=== PATIENT | female | born 1945 | race Caucasian/White ===

== ENCOUNTER 2023-11-04 05:00 | Outpatient (CLI) | payer MEDICARE, SELFPAY ==
[2023-11-04 09:43] LABS: HCT 44.6 % (36.0-46.0); HGB 14.8 g/dL (11.2-15.7); MCH 29.7 pg (27.0-33.0); MCHC 33.2 % (32.0-36.0); MCV 90 fL (80-95); MPV 8.5 fL (8.0-11.0); Platelet Count 333 10^3/uL (130-400); RBC 4.98 10^6/uL (3.93-5.22); RDW 13.1 % (11.7-14.6); RDW-SD 42.5 fL; WBC 8.03 10^3/uL (4.4-10.8)
[2023-11-04 10:24] LABS: Hemoglobin A1C 6.1 % (<5.7)
[2023-11-04 11:22] LABS: Anion Gap 8.4 mmol/L (3-11); BUN 23 mg/dL (7-18); CO2 25.6 mmol/L (21.0-32.0); CREATININE 1.2 mg/dL (0.55-1.02); Calcium 9.8 mg/dL (8.5-10.1); Calculated LDL 91 mg/dL (<100); Chloride 96 mmol/L (98-107); Cholesterol 182 mg/dL (<200); Estimated GFR 45.76 (mL/min/1.73m2); Glucose 125 mg/dL (74-106); HDL Cholesterol 62 mg/dL (40-60); Potassium 5.2 mmol/L (3.5-5.1); Sodium 130 mmol/L (136-145); Triglyceride 145 mg/dL (<150)
[2023-11-04 11:40] LABS: NT-proBNP 129 pg/mL (<300)
== END 2023-11-04 05:01 | disposition home or self-care (01) ==
PROVIDERS: PCP Nurse Practitioner Family; Visit Provider Nurse Practitioner Family
DX: I10 Essential (primary) hypertension (principal); M85.89 Other specified disorders of bone density and structure, multiple sites; E78.5 Hyperlipidemia, unspecified; F32.A Depression, unspecified; R06.02 Shortness of breath; R73.09 Other abnormal glucose
CPT/HCPCS: 36415; 80048; 80061; 85027; 83036; 83880

== ENCOUNTER 2024-04-22 10:19 | Emergency (ER) | payer MEDICARE, SELFPAY ==
[2024-04-22] VITALS (22 sets, daily range): BP systolic 109–141; BP diastolic 58–79; PULSE 67–120; RESP 14–27; TEMP 36.6–36.8; O2SAT 95–100
--- NOTE | 2024-04-22 10:30 | RT.EKG_ITS ---
APPROVED REPORT Exam: Resting ECG Reason for Exam: Weakness, Tachycardia Patient Location: E HR:105 bpm ECG Measurements Heart Rate 105 AXIS ME 142 P 63 QRSd 120 QRS 36 QT 365 T 161 QTc 483 Conclusion Sinus tachycardia, rate 105 LBBB Jenny vega criteria met for acute ischemia
--- NOTE | 2024-04-22 10:45 | DI.RAD_ITS ---
Exam(s) XR PORTABLE CHEST AP EXAM: XR PORTABLE CHEST AP CLINICAL HISTORY: Cough. TECHNIQUE: 2D digital imaging was performed. COMPARISON: No exams were available for comparison FINDINGS: Single AP portable view. Heart size is upper normal. The mediastinum is not widened. Lungs are clear. No infiltrates nor obvious pleural effusions. IMPRESSION: No acute pulmonary findings on this single AP portable view of the chest. DATA REPOSITORY: RADIATION DOSE DELIVERED:
[2024-04-22 11:36] LABS: Abs Immature Grans 0.04 10^3/uL (0.0-0.06); Absolute Basophil Count 0.07 10^3/uL (0.0-0.2); Absolute Eosinophil Count 0.14 10^3/uL (0.0-0.7); Absolute Lymphocyte Count 1.88 10^3/uL (1.2-3.4); Absolute Monocyte Count 0.85 10^3/uL (0.1-0.8); Absolute Neutrophil Count 7.31 10^3/uL (1.2-6.7); Basophils % 0.7 %; Eosinophils % 1.4 %; HCT 46.8 % (36.0-46.0); HGB 15.5 g/dL (11.2-15.7); Immature Grans % 0.4 %; Lymphocytes % 18.3 %; MCH 29.6 pg (27.0-33.0); MCHC 33.1 % (32.0-36.0); MCV 90 fL (80-95); MPV 9.6 fL (8.0-11.0); Monocytes % 8.3 %; Neutrophils % 70.9 %; Platelet Count 237 10^3/uL (130-400); RBC 5.23 10^6/uL (3.93-5.22); RDW 14.2 % (11.7-14.6); RDW-SD 46.2 fL; WBC 10.29 10^3/uL (4.4-10.8)
--- NOTE | 2024-04-22 12:00 | ED.GENADUL_ITS ---
Discharge Plan Disposition Patient Disposition: Home Condition: Stable Discharge Details Clinical Impression: Acute dehydration, Hypertension, Hyperlipidemia, Depression, MCI (mild cognitive impairment), LBBB (left bundle branch block), Schatzki's ring Primary Care Provider: Medina Johnson ED Provider: Flory Shea Home Meds and New Rx's Prescriptions: No Action omeprazole 20 mg capsule,delayed release(DR/EC) 20 mg PO DAILY Qty: 90 3RF Rx Instructions: take 30 minutes before largest meal of the day atorvastatin 20 mg tablet 20 mg PO DAILY Qty: 90 3RF lisinopril 40 mg tablet 40 mg PO DAILY Qty: 90 3RF sertraline 50 mg tablet 75 mg PO DAILY Qty: 135 3RF cholecalciferol (vitamin D3) 25 mcg (1,000 unit) capsule 25 mcg PO DAILY nystatin 100,000 unit/gram powder 1 applic topical BID PRN (Reason: yeast ) Qty: 30 1RF spironolactone 50 mg tablet 25 mg PO DAILY Discharge Instructions Instructions: Dehydration, Adult (DC) Additional Instructions: Your family member was seen in the emergency department today for evaluation of poor oral intake and was found to be dehydrated. Her laboratory studies were otherwise quite reassuring, and she had no sign of infection or damage to her heart. She was able to drink quite a bit of water here in the emergency department and I am reassured that she will be able to maintain her hydration in the outpatient environment with some encouragement. She can drink juice, Gatorade, or anything else that gives her hydration that tastes better to her than water. She should also maintain good nutrition, and follow-up with her primary care provider for reassessment in the next few days. Thank you for allowing us to be part of your family member's care. Discharge Data Discharge Date/Time-TO BE ENTERED AT DEPARTURE: 04/22/24 14:58 HPI General Mode of arrival: ambulatory . Date/Time Provider Initiated Documentation: 04/22/24 10:59 . Limitations to Documentation: no limitations . Information obtained by: patient, family and old records reviewed . HPI Narrative: HPI: This is an 78-year-old female patient with a past medical history significant for Schatzki's ring, left bundle branch block, depression, hyperlipidemia, and hypertension, who is presenting for evaluation of poor p.o. intake and dark urine. History is primarily obtained from the patient's [id number] who is the primary caregiver. She reports that for the last week or so the patient has not been eating and drinking as much is typical, they have noted occasional episodes of coughing and gagging, and they were worried for dehydration due to the patient's dark urine that was noted in her brief yesterday. The patient has otherwise been in her normal health, with no fever, chills, reported pain. She has not been complaining of any nausea and has not had vomiting. The patient has been taking all of her medications as prescribed. She had an incident where this occurred several months to years ago, at which time her primary care provider increased her antidepressants, to good effect. Exam: Gen: Awake and alert, in no apparent distress. HEENT: Non-icteric sclera, pupils equal and reactive Neck: Supple Lungs: No apparent respiratory distress, normal respiratory effort. Lung sounds clear and equal, no wheezes, rhonchi, rales. Patient does not have any episodes of coughing while under my care. CV: Appears well perfused, strong distal pulses, tachycardic rate but regular rhythm Abdomen: Non-distended, soft, nontender with no rigidity, rebound, or guarding MSK: Moves 4 extremities without apparent limitation in ROM, no unilateral calf swelling or tenderness, no peripheral edema Skin: Visualized skin without rashes, cyanosis. Neuro: No obvious focal deficits or facial asymmetry. Speaks in full, clear sentences, slow to answer questions and requires family prompting. Psych: Appropriate for situation. MDM: This is an 78-year-old female patient presenting for evaluation of decreased p.o. intake and dark urine. My differential includes but is not limited to dehydration, metabolic and electrolyte derangements, could certainly considered hypothyroidism and depression, as well as dysphagia due to her known Schatzki's ring. I considered urinary tract infection, nephrolithiasis. No significant abdominal tenderness to increase my concern for severe intra- abdominal pathology such as bowel obstruction, perforation, etc. We will provide the patient with oral fluids, obtain an EKG, and laboratory studies to include CBC, CMP, troponin, BNP, TSH, and urinalysis. I will also obtain a chest x-ray to evaluate for abnormalities such as pneumonia or evidence of aspiration. ED Course: I reviewed the patient's EKG, which shows a sinus tachycardia with a left bundle branch block, reported as baseline for the patient with no evidence of acute ischemia. Chest x-ray without evidence of focal consolidation suggestive of pneumonia, aspiration, or evidence of pulmonary edema. I reviewed the patient's laboratory studies which show no leukocytosis, anemia or thrombocytopenia. Chemistry panel without severe electrolyte abnormalities, she does have an elevation in her BUN to 38 with a creatinine of 0.9, BUN to creatinine ratio greater than 20-1 suggestive of prerenal azotemia. Bilirubin is very mildly elevated to 106, troponin is negative x 2 checks, no elevation in BNP, TSH within normal limits. Urinalysis without evidence of infection, was contaminated, but no indication for antibiosis at this time. The patient was able to be rehydrated orally and drink quite a bit of water here in the emergency department with encouragement. Family was counseled on increasing p.o. hydration at home. The patient's tachycardia resolved, and I feel confident the patient will be able to maintain her hydration in the outpatient environment, and recommended follow-up with her primary care provider in the next few days to discuss this visit and any symptoms that change, worsen, or persist. At this time, the patient has had a full medical evaluation and is safe for discharge to home. They are hemodynamically stable, ambulatory, and tolerating PO. They are understanding of the follow-up plan and return precautions. They left our facility without incident. Flory Shea MD Related Data Home Medications ?Medication ?Instructions ?Recorded ?Confirmed cholecalciferol (vitamin D3) 25 25 mcg PO DAILY 07/23/23 04/22/24 mcg (1,000 unit) capsule nystatin 100,000 unit/gram topical 1 applic topical BID PRN yeast 08/26/23 04/22/24 powder #30 grams atorvastatin 20 mg tablet 20 mg PO DAILY #90 tabs 10/28/23 04/22/24 lisinopril 40 mg tablet 40 mg PO DAILY #90 tabs 10/28/23 04/22/24 omeprazole 20 mg capsule,delayed 20 mg PO DAILY #90 caps 10/28/23 04/22/24 release sertraline 50 mg tablet 75 mg (1.5 x 50 mg) PO DAILY #135 02/12/24 04/22/24 tabs spironolactone 50 mg tablet 25 mg PO DAILY 04/22/24 04/22/24 Previous Rx's ?Medication ?Instructions ?Recorded nystatin 100,000 unit/gram topical 1 applic topical BID PRN yeast 08/26/23 powder #30 grams atorvastatin 20 mg tablet 20 mg PO DAILY #90 tabs 10/28/23 lisinopril 40 mg tablet 40 mg PO DAILY #90 tabs 10/28/23 omeprazole 20 mg capsule,delayed 20 mg PO DAILY #90 caps 10/28/23 release sertraline 50 mg tablet 75 mg (1.5 x 50 mg) PO DAILY #135 02/12/24 tabs Allergies Allergy/AdvReac Type Severity Reaction Status Date / Time etodolac Allergy Unknown unknown Unverified 04/22/24 10:50 General Stated Complaint: GenMedical MANISH: 2 Course Vital Signs Vital signs: Vital Signs Temperature 36.6 C 04/22/24 10:30 Pulse 120 H 04/22/24 10:30 Respiratory Rate 14 04/22/24 10:30 Blood Pressure 113/58 L 04/22/24 10:30 Pulse Oximetry 96 04/22/24 10:30 Temperature 36.8 C 04/22/24 10:56 Temperature Source Oral 04/22/24 10:30 Pulse 98 H 04/22/24 10:56 Respiratory Rate 17 04/22/24 10:56 Respiratory Effort Normal 04/22/24 10:56 Respiratory Depth Normal 04/22/24 10:56 Respiratory Pattern Normal 04/22/24 10:56 Blood Pressure 109/75 04/22/24 10:56 Blood Pressure Position Supine 04/22/24 10:56 Pulse Oximetry 97 04/22/24 10:56 Oxygen Delivery Method Room Air 04/22/24 10:30 Oxygen Flow Rate 0 04/22/24 10:30 Pain Level 4 04/22/24 10:30 Lab/Test Results Lab/Test Results: Laboratory Tests Range/Units 04/22/24 11:30 WBC (4.4-10.8) 10^3/uL 10.29 RBC (3.93-5.22) 10^6/uL 5.23 H Hgb (11.2-15.7) g/dL 15.5 Hct (36.0-46.0) % 46.8 H MCV (80-95) fL 90 MCH (27.0-33.0) pg 29.6 MCHC (32.0-36.0) % 33.1 RDW (11.7-14.6) % 14.2 Plt Count (130-400) 10^3/uL 237 MPV (8.0-11.0) fL 9.6 Immature Gran % % 0.4 Neutrophils % % 70.9 Lymphocytes % % 18.3 Monocytes % % 8.3 Eosinophils % % 1.4 Basophils % % 0.7 Nucleated RBC % (0.0-0.3) % 0.0 Absolute Neutrophils (1.2-6.7) 10^3/uL 7.31 H Absolute Lymphocytes (1.2-3.4) 10^3/uL 1.88 Absolute Monocytes (0.1-0.8) 10^3/uL 0.85 H Absolute Eosinophils (0.0-0.7) 10^3/uL 0.14 Absolute Basophils (0.0-0.2) 10^3/uL 0.07 Medical Decision Making Quality:SDOH Health Related Social Needs: No Data to Display PFSH All Active Problems (Updated 04/22/24 @ 14:50 by Flory Shea MD) Acute dehydration (Acute) Dementia (Chronic) SCC (squamous cell carcinoma) (Acute ~01/2023) Schatzki's ring (Acute) LBBB (left bundle branch block) (Acute ~2016) MCI (mild cognitive impairment) (Acute ~2021) Anisocoria (Acute) Depression (Chronic ~2018) Esophageal spasm (Acute) PVC (premature ventricular contraction) (Acute ~2019) Actinic keratoses (Acute) Gait disturbance (Acute ~2017) Osteoarthritis of right knee (Acute) Plantar fasciitis (Acute) Osteopenia (Acute) Anxiety (Chronic) Venous insufficiency (Acute) Dyspepsia (Acute) Agoraphobia (Acute Unknown) Chronic rhinitis (Acute Unknown) Vitamin D deficiency (Acute Unknown) Obesity (Chronic ~2014) Hyperlipidemia (Acute) Hypertension (Chronic) Medical History (Updated 04/22/24 @ 14:50 by Flory Shea MD) Herpes zoster Gallstone Left ovarian cyst Malignant melanoma of right lower leg Vertigo Colon polyps (~2006) Family History (Updated 02/12/24 @ 08:33 by Medina Johnson NP) Mother Breast cancer Father Dementia Heart disease Brother Diabetes Hyperlipidemia Hypertension Son Diabetes Hyperlipidemia Hypertension Social History (Updated 08/12/23 @ 14:34 by Pat Henriquez) Smoking/Tobacco Use Status: Never Second Hand Exposure: Yes Smoking risk assessment performed?: Yes Alcohol Intake: never Drug use: Never Substance use type: does not use Adopted: No Caregiver/Support person: Yes Foster care: No Household members: family and caregiver Housing: house Number of Children: 1 number of grandchildren: 2 Communication Needs: None Education Level: high school current occupation: retired Pets and animals: No Sexually active: No Do you think of yourself as: straight/heterosexual Current gender identity: female What is your relationship status?: How often do you talk on the phone with friends or family?: three or more times per week How often do you get together with friends or relatives?: three or more times per week Do you belong to any clubs or organized social groups?: no Panel score (0-1 are the most socially isolated patients): 2 What type of physical activity do you participate in: none Jeana/[employer]regation: [employer] jeana needs: No Agree to transfusion: Yes Seatbelt use: always Drive intox or ride w/intox medical delivery driver: No Working smoke detector in home: Yes Carbon monox detector in home: Yes Firearms in home: No Do you feel safe at home: Yes Do you feel safe in your relationship?: Yes Victim of physical abuse: No Victim of emotional abuse: No Victim of sexual abuse: No
[2024-04-22 12:10] LABS: ALT 39 U/L (14-59); AST 40 U/L (15-37); Alkaline Phosphatase 102 U/L (46-116); Anion Gap 8.2 mmol/L (3-11); BUN 38 mg/dL (7-18); Bilirubin, Total 1.06 mg/dL (0.2-1.0); CO2 27.8 mmol/L (21.0-32.0); CREATININE 0.9 mg/dL (0.55-1.02); Calcium 9.8 mg/dL (8.5-10.1); Chloride 101 mmol/L (98-107); Estimated GFR 64.63 (mL/min/1.73m2); Glucose 143 mg/dL (74-106); NT-proBNP 212 pg/mL (<300); Potassium 4.1 mmol/L (3.5-5.1); Sodium 137 mmol/L (136-145); TSH 0.71 uIU/Ml (0.36-3.74); Total Protein 7.1 g/dL (6.4-8.2); Troponin I 13 ng/L (<or=51)
[2024-04-22 12:11] LABS: COVID-19 PCR Negative (Negative); Influenza A PCR Negative (Negative); Influenza B PCR Negative (Negative); RSV PCR Negative (Negative); Source Nasopharynx
[2024-04-22 13:25] LABS: Troponin I 14 ng/L (<or=51)
[2024-04-22 14:17] LABS: Bilirubin Small (Negative); Blood Negative (Negative); Clarity Clear (Clear); Glucose 100 mg/dL (Negative); Ketones 15 mg/dL (Negative); Leukocyte Esterase Trace (Negative); Nitrite Negative (Negative); Specific Gravity 1.025 (1.005-1.025); pH 5.5 (5-8)
[2024-04-22 14:22] LABS: Bacteria Moderate HPF (Negative); C & S Indicated? No; Casts Negative LPF (Negative); Crystals Negative HPF (Negative); Epithelial Cells Many HPF (Negative); Mucus Moderate (Negative); RBC 0-2 HPF (0-2)
== END 2024-04-22 14:58 | disposition home or self-care (01) ==
PROVIDERS: Emergency Provider Emergency Medicine; PCP Nurse Practitioner Family
DX: R53.1 Weakness (principal); E86.0 Dehydration; I10 Essential (primary) hypertension; E78.5 Hyperlipidemia, unspecified; G31.84 Mild cognitive impairment of uncertain or unknown etiology; I44.7 Left bundle-branch block, unspecified; R00.0 Tachycardia, unspecified
CPT/HCPCS: 80053; 87637; 93005; 99285; 71045; 81003; 81015; 83735; 83880; 84443; 84484; 85025; 93010; 99284

== ENCOUNTER 2024-05-06 17:24 | Emergency (ER) | payer MEDICARE, SELFPAY ==
[2024-05-06 17:24] VITALS: BP 121/76; PULSE 94; RESP 18; TEMP 36.2; O2SAT 95
--- NOTE | 2024-05-06 17:30 | DI.RAD_ITS ---
Exam(s) XR SHOULDER LT COMPLETE 2+V EXAM: XR SHOULDER LT COMPLETE 2+V CLINICAL HISTORY: Fall. TECHNIQUE: 2D digital imaging was performed of the left shoulder. Four images were obtained. AP, G rashey and Y views were obtained. COMPARISON: No exams were available for comparison FINDINGS: BONES: There is an acute fracture of the distal aspect of the left clavicle. The fracture does not a ppear to extend into the joint space. The fracture is displaced at least 1/2 shaft's width. No bony destructive lesion is seen. JOINTS: No dislocation present. There are degenerative changes seen at both the acromioclavicular and glenohumeral joints. SOFT TISSUE: Normal. IMPRESSION: Mildly displaced fracture involving the distal left clavicle. DATA REPOSITORY: RADIATION DOSE DELIVERED:
--- NOTE | 2024-05-06 17:35 | W.ED.GENAD ---
Discharge Plan Disposition Patient Disposition: Home Condition: Stable Discharge Details Clinical Impression: Fall, Closed fracture of left clavicle Primary Care Provider: Medina Johnson ED Provider: Anastasia Gallardo Home Meds and New Rx's Prescriptions: No Action omeprazole 20 mg capsule,delayed release(DR/EC) 20 mg PO DAILY Qty: 90 3RF Rx Instructions: take 30 minutes before largest meal of the day atorvastatin 20 mg tablet 20 mg PO DAILY Qty: 90 3RF lisinopril 40 mg tablet 40 mg PO DAILY Qty: 90 3RF sertraline 50 mg tablet 75 mg PO DAILY Qty: 135 3RF cholecalciferol (vitamin D3) 25 mcg (1,000 unit) capsule 25 mcg PO DAILY nystatin 100,000 unit/gram powder 1 applic topical BID PRN (Reason: yeast ) Qty: 30 1RF spironolactone 50 mg tablet 25 mg PO DAILY Discharge Instructions Instructions: Preventing falls in adults, Broken Collarbone ED Additional Instructions: You have broken your left collarbone or clavicle. Please wear the sling as much as possible for comfort. Please take Tylenol or Ibuprofen with food every 4-6 hours as needed for pain and swelling. Follow up with orthopedics/primary care provider in 3-5 days. Return to ED sooner if any worsening shortness of breath, dizziness lightheadedness, complaints of pain or concerns. The orthopedic office will call you for an appointment. If you do not hear from them in the next few days please give them a call. Referrals: Silvano Garcia MD [ [facility] STAFF PHYSICIAN] - 1 week Medina Johnson NP [Primary Care Provider] - HPI General Mode of arrival: EMS. Date/Time Provider Initiated Documentation: 05/06/24 17:35. Limitations to Documentation: altered mental status (Hx of Dementia). Information obtained by: EMS, RN notes reviewed and old records reviewed. HPI Narrative: 78 year-old female presents to the ER via EMS with a chief complaint of fall. Patient had an unwitnessed fall according to family they were outside and they came and finding her on the ground next to her recliner. Patient does have a history of Alzheimer's dementia, denies any pain upon arrival. She does have her left shoulder in a sling per EMS they did report tenderness on scene and possible deformity. They did give her a gram of Tylenol IV prior to arrival. Pain is not appreciated on my exam. Denies any neck pain back pain headache. Distal CMS is intact. She does have a past medical history of hypertension high cholesterol Related Data Home Medications ?Medication ?Instructions ?Recorded ?Confirmed cholecalciferol (vitamin D3) 25 25 mcg PO DAILY 07/23/23 05/06/24 mcg (1,000 unit) capsule nystatin 100,000 unit/gram topical 1 applic topical BID PRN yeast 08/26/23 05/06/24 powder #30 grams atorvastatin 20 mg tablet 20 mg PO DAILY #90 tabs 10/28/23 05/06/24 lisinopril 40 mg tablet 40 mg PO DAILY #90 tabs 10/28/23 05/06/24 omeprazole 20 mg capsule,delayed 20 mg PO DAILY #90 caps 10/28/23 05/06/24 release sertraline 50 mg tablet 75 mg (1.5 x 50 mg) PO DAILY #135 02/12/24 05/06/24 tabs spironolactone 50 mg tablet 25 mg PO DAILY 04/22/24 05/06/24 Previous Rx's ?Medication ?Instructions ?Recorded nystatin 100,000 unit/gram topical 1 applic topical BID PRN yeast 08/26/23 powder #30 grams atorvastatin 20 mg tablet 20 mg PO DAILY #90 tabs 10/28/23 lisinopril 40 mg tablet 40 mg PO DAILY #90 tabs 10/28/23 omeprazole 20 mg capsule,delayed 20 mg PO DAILY #90 caps 10/28/23 release sertraline 50 mg tablet 75 mg (1.5 x 50 mg) PO DAILY #135 02/12/24 tabs Allergies Allergy/AdvReac Type Severity Reaction Status Date / Time etodolac Allergy Unknown unknown Unverified 04/22/24 10:50 General Stated Complaint: Orthopedic MANISH: 4 Review of Systems All systems reviewed & are unremarkable except as noted in HPI and below Constitutional Constitutional: Reports frequent falls Neurologic Neurologic: Reports frequent falls Exam Narrative Exam Narrative: General: Well Developed, Awake and at baseline Skin: Warm and Dry HEENT: Head: No palpable deformities, Normocephalic Eyes: Pupils PERRLA, EOM's intact. No periorbital eccymosis or step off Ears: Canal patent. Tympanic membranes are clear . No newberry's sign, no hemptympanum. Nose/Face: Atraumatic. Facial bones nontender to palpation and stable with manipulation. Mouth/Throat: No intraoral trauma. Teeth and mandible are intact. Neck: No midline tenderness, no step off, no deformity to palpation of C-spine. Trachea midline. Chest: No surface trauma. Nontender without crepitus or deformity. Lungs clear to ausculatation bilaterally. Heart: RRR, no rubs, murmurs or gallop. Abdomen: No abrasions, ecchymosis, or surface trauma. Nondistended. Nontender to palpation no guarding, rebound, or rigidity. Pelvis: Nontender to palpation and stable to compression. Femoral pulses strong and equal Extremities: no surface trauma. Sensation intact. Peripheral pulses intact and equal. Neuro: ANO x4, GCS 15, cranial nerves II through XII intact. Motor and sensory exam nonfocal. Reflexes are symmetric. Course Vital Signs Vital signs: Vital Signs Temperature 36.2 C L 05/06/24 17:24 Pulse 94 H 05/06/24 17:24 Respiratory Rate 18 05/06/24 17:24 Blood Pressure 121/76 05/06/24 17:24 Pulse Oximetry 95 05/06/24 17:24 Temperature 36.2 C L 05/06/24 17:24 Pulse 94 H 05/06/24 17:24 Respiratory Rate 18 05/06/24 17:24 Respiratory Effort Normal 05/06/24 17:32 Blood Pressure 121/76 05/06/24 17:24 Pulse Oximetry 95 05/06/24 17:24 Oxygen Delivery Method Room Air 05/06/24 17:24 Oxygen Flow Rate 0 05/06/24 17:24 Pain Level 4 05/06/24 17:24 Medical Decision Making 78 year-old female presents to the ER via EMS with a chief complaint of fall. Patient had an unwitnessed fall according to family they were outside and they came and finding her on the ground next to her recliner. Patient does have a history of Alzheimer's dementia, denies any pain upon arrival. She does have her left shoulder in a sling per EMS they did report tenderness on scene and possible deformity. They did give her a gram of Tylenol IV prior to arrival. Pain is not appreciated on my exam. Denies any neck pain back pain headache. Distal CMS is intact. She does have a past medical history of hypertension high cholesterol X-ray left shoulder ordered. Distal left clavicle fracture, will place in a sling and swath discharged home in the care of her family. Discussed x-ray results with family who verbalized understanding. Patient placed on the orthopedic follow-up list. Instructed on Tylenol ibuprofen and strict return instructions. This text was generated using [employer]wl[employer] dictation system, please disregard any oddities of phrase or misspellings. Medical Records Medical records reviewed: Yes I reviewed the patient's medical records. Quality:SDOH Health Related Social Needs: No Data to Display [facility] All Active Problems (Updated 05/06/24 @ 19:01 by Anastasia Gallardo NP) Closed fracture of left clavicle (Acute) Fall (Acute) Acute dehydration (Acute) Dementia (Chronic) SCC (squamous cell carcinoma) (Acute ~01/2023) Schatzki's ring (Acute) LBBB (left bundle branch block) (Acute ~2016) MCI (mild cognitive impairment) (Acute ~2021) Anisocoria (Acute) Depression (Chronic ~2018) Esophageal spasm (Acute) PVC (premature ventricular contraction) (Acute ~2019) Actinic keratoses (Acute) Gait disturbance (Acute ~2017) Osteoarthritis of right knee (Acute) Plantar fasciitis (Acute) Osteopenia (Acute) Anxiety (Chronic) Venous insufficiency (Acute) Dyspepsia (Acute) Agoraphobia (Acute Unknown) Chronic rhinitis (Acute Unknown) Vitamin D deficiency (Acute Unknown) Obesity (Chronic ~2014) Hyperlipidemia (Acute) Hypertension (Chronic) Medical History Herpes zoster Gallstone Left ovarian cyst Malignant melanoma of right lower leg Vertigo Colon polyps (~2006) Family History Mother Breast cancer Father Dementia Heart disease Brother Diabetes Hyperlipidemia Hypertension Son Diabetes Hyperlipidemia Hypertension Social History Smoking/Tobacco Use Status: Never Second Hand Exposure: Yes Smoking risk assessment performed?: Yes Alcohol Intake: never Drug use: Never Substance use type: does not use Adopted: No Caregiver/Support person: Yes Foster care: No Household members: family and caregiver Housing: house Number of Children: 1 number of grandchildren: 2 Communication Needs: None Education Level: high school current occupation: retired Pets and animals: No Sexually active: No Do you think of yourself as: straight/heterosexual Current gender identity: female What is your relationship status?: How often do you talk on the phone with friends or family?: three or more times per week How often do you get together with friends or relatives?: three or more times per week Do you belong to any clubs or organized social groups?: no Panel score (0-1 are the most socially isolated patients): 2 What type of physical activity do you participate in: none Jeana/Anabaptist: Episcopalian Special jeana needs: No Agree to transfusion: Yes Seatbelt use: always Drive intox or ride w/intox city bus driver: No Working smoke detector in home: Yes Carbon monox detector in home: Yes Firearms in home: No Do you feel safe at home: Yes Do you feel safe in your relationship?: Yes Victim of physical abuse: No Victim of emotional abuse: No Victim of sexual abuse: No
--- OUTSIDE RECORDS SUMMARY | 2024-05-06 17:35 | XMS_ITS | Clinical Summary ---
Author Organization [facility] [place] [address] Care Team Providers Care Plastic Surgeon Name Role Phone ElizabethMedina APRN Primary Care Provider [phone]- [phone] Social History Tobacco Use Types Packs/Day Years Used Date Smoking Tobacco: Never Assessed Sex and Gender Information Value Date Recorded Sex Assigned at Not on file Gender Identity Not on file Sexual Orientation Not on file Plan of Treatment Health Maintenance Due Date Last Done Comments Hepatitis C Screening 1963 Tetanus/Diphtheria/Pertussis Vaccines (1 - Tdap) 05/22 Zoster vaccine (1 of 2) 1993 Advance Directive 1998 Bone Density Scan 2008 Pneumoccocal Vaccine: 65+ (1 of 1 - PCV) 2008 Covid-19 Vaccine (1 - 2022- season) 2024 Influenza (Flu) vaccine (1 o f 1 - Influenza standard series) 03/14/2024 Care Teams Plastic Surgeon Relationship Specialty Start Date End Date Medina Johnson APRN [address] [place] [address] PCP - General Internal Medicine 08/05/23
--- OUTSIDE RECORDS SUMMARY | 2024-05-06 17:35 | XMS_ITS | Encounter Summary ---
Author Organization [facility] [place] [address] Care Team Providers Care Cattle Inspector Name Role Phone Medina Johnson APRN Primary Care Provider [phone]- [phone] Reason for Referral * Consultation (Routine) - Closed Specialty Diagnoses / Procedures Referred By Silvana malhotra Referred To Contact Dermatology Diagnoses SCC (squamous cell carcinoma) Actinic keratosis Medina Johnson APRN [address] [place] [address] [facility] [address] [place] [address] Referral ID Status Reason Start Date Expiration Date V isits Requested Visits Authorized [id number] Closed Consult, Test & Treat PCP Updated and/or Approved 08/05/2023 08/04/2024 6 6 Encounter Details Date Type Department Care Team (Late st Contact Info) Description 08/05/2023 Transcribe Orders eDH Incoming Referrals [phone] Medina Johnson BAIT PACKER [address] [place], [place] [id number] SCC (squamous cell carcinoma); Actinic keratosis Social History Tobacco Use Types Packs/Day Years Used Date Smoking Tobacco: Never Assessed Sex and Gender Information Value Date Recorded Sex Assigned at Not on file Gender Identity Not on file Sexual Orientation Not on file documented as of this encounter Plan of Treatment Scheduled Referrals Name Type Priority Associated Diagnoses Order Schedule Referral to Dermatology Outpatient Referral Routine SCC (squamous cell carcinoma) Actinic keratosis Ordered: 08/05/2023 documented as of this encounter Visit Diagnoses Diagnosis SCC (squamous cell carcinoma) Squamous cell carcinoma of skin, site unspecified Actinic keratosis documented in this encounter Care Teams Cattle Inspector Relationship Specialty Start Date End Date Elizabeth, Medina Randolph APRN [address] [place] [address] PCP - General Internal Medicine 08/05/23 documented as of this encounter
--- NOTE | 2024-05-06 18:00 | DI.RAD_ITS ---
Exam(s) XR PORTABLE CHEST AP EXAM: XR PORTABLE CHEST AP CLINICAL HISTORY: Fall TECHNIQUE: 2D digital imaging was performed of the chest. One image was obtained. An AP view was ob tained. COMPARISON: CR XR PORTABLE CHEST AP from 04/22/2024 FINDINGS: MEDIASTINUM: Normal. HEART: Normal. PULMONARY VASCULATURE: Normal. LUNGS: There is a new small asymmetry in projected in the right lung apex. This was not present 2 we eks ago and likely reflects a atelectasis or small infiltrate. Pulmonary nodules considered less lik gissel. There is plate atelectasis in the left lung base. PLEURAL SPACE: No pleural effusion or pneumothorax. BONE:Within normal limits for the patient's age. There is again seen an acute displaced fracture invo lving the distal left clavicle. OTHER FINDINGS:Normal. IMPRESSION: 1. Displaced distal left clavicular fracture. 2. No evidence of a pneumothorax or pleural effusion. 3. Probable areas of atelectasis in the lungs. DATA REPOSITORY: RADIATION DOSE DELIVERED:
[2024-05-06 19:21] VITALS: BP 100/76; PULSE 93; RESP 16; TEMP 36.5; O2SAT 97
== END 2024-05-06 19:24 | disposition home or self-care (01) ==
PROVIDERS: Emergency Provider Registered Nurse Emergency; PCP Nurse Practitioner Family
DX: S42.002A Fracture of unspecified part of left clavicle, initial encounter for closed fracture (principal); W19.XXXA Unspecified fall, initial encounter
CPT/HCPCS: 99284; 71045; 73030